=== PATIENT | male | born 1940 | race Caucasian/White ===

== ENCOUNTER 2017-11-04 14:58 | Emergency (ER) | payer MEDICARE ==
[~2017-11-04] VITALS: Ht 177.8 cm; Wt 89.4 kg
--- NOTE | 2017-11-04 15:00 | NUR ---
PT BIB [facility] TO ER BED 11. PER REPORT, PT IS C/O GENERALIZED WEAKNESS AND PER STAFF, REFUSING TO EAT BREAKFAST. HX OF DEMENTIA. AAO TO NAME ONLY AND STATING THAT HE FEELS FINE. ON MONITOR. STABLE VITALS. AWAITING MD COLBY.
--- NOTE | 2017-11-04 15:08 | NUR ---
DR GARCIA AT BEDSIDE FOR EVAL.
[2017-11-04 15:21] LABS: BASOPHILS # (AUTO) 0.1 /CMM (0.0-0.2); BASOPHILS % (AUTO) 1.3 % (0.0-2.0); EOSINOPHILS # (AUTO) 0.6 /CMM (0.0-0.7); EOSINOPHILS % (AUTO) 10.4 % (0.0-6.0); HEMATOCRIT 40 % (39-51); HEMOGLOBIN 13.9 g/dL (13.5-17.5); LYMPHOCYTES # (AUTO) 1.6 /CMM (0.8-4.8); LYMPHOCYTES % (AUTO) 27.3 % (20.0-44.0); MEAN CORPUSCULAR HEMOGLOBIN 31 PG (26.0-33.0); MEAN CORPUSCULAR HGB CONC 35 g/dl (31.0-36.0); MEAN CORPUSCULAR VOLUME 88 fL (80-96); MONOCYTES # (AUTO) 0.5 /CMM (0.1-1.30); MONOCYTES % (AUTO) 9.2 % (2.0-12.0); NEUTROPHILS # (AUTO) 3.1 /CMM (1.8-8.9); NEUTROPHILS % (AUTO) 51.8 % (43.0-81.0); PLATELET COUNT (AUTO) 207 /CMM (150-450); RDW COEFFICIENT OF VARIATION 13.5 (11.5-15.0); RED BLOOD CELL COUNT(AUTO) 4.53 MIL/uL (4.5-6.0); WHITE BLOOD COUNT (AUTO) 5.9 K/uL (4.3-11.0)
--- NOTE | 2017-11-04 15:23 | NUR ---
RADIOLOGY AT BEDSIDE FOR CHEST XRAY.
[2017-11-04 15:30] LABS: CALCIUM, SERUM 8.9 mg/dL (8.5-10.1); CARBON DIOXIDE 33 mmol/L (21-32); CHLORIDE 108 mmol/L (98-107); GLUCOSE 93 mg/dL (74-106); POTASSIUM 4.3 mmol/L (3.5-5.1); SODIUM SERUM 143 mmol/L (136-145); UREA NITROGEN, BLOOD 22 mg/dL (7-18)
[2017-11-04 15:34] LABS: INR 0.99 (0.85-1.15)
[2017-11-04 15:36] LABS: ALANINE AMINOTRANSFERASE 23 U/L (12-78); ALBUMIN 3.1 g/dL (3.4-5.0); ALKALINE PHOSPHATASE 62 U/L (46-116); ASPARTATE AMINOTRANSFERASE 20 U/L (15-37); BILIRUBIN,DIRECT 0.2 mg/dL (0.0-0.2); BILIRUBIN,TOTAL 0.5 mg/dL (0.2-1.0); TOTAL PROTEIN, SERUM 7.2 g/dL (6.4-8.2)
[2017-11-04 15:38] LABS: TROPONIN I < 0.017 ng/mL (0.00-0.056)
[2017-11-04 16:12] LABS: APPEARANCE,URINE Clear (CLEAR); BILIRUBIN,URINE Negative (NEGATIVE); BLOOD, URINE Negative Ery/uL (NEGATIVE); COLOR,URINE Yellow (YELLOW); KETONES,URINE Negative (NEGATIVE); LEUKOCYTE ESTERASE ,URINE Negative (NEGATIVE); NITRITE, URINE Negative (NEGATIVE); PROTEIN,URINE Negative (NEGATIVE); UGLUCOSE Negative (NEGATIVE)
[2017-11-04 16:19] LABS: BACTERIA,URINE None seen /HPF (None Seen); RBC,URINE 0-2 /HPF (0-2); SQUAMOUS EPITHELIAL CELL,UR Few /HPF (None Seen); WBC,URINE 0-3 /HPF (0-3)
[2017-11-04 16:20] LABS: MUCUS,URINE Few /LPF (None Seen)
--- NOTE | 2017-11-04 16:59 | NUR ---
CALLED [facility] FOR BLS TRANSPORT AND SPOKE TO DISPATCHER IDALIA. RECEIVED A 45 MIN ETA. TRIP #[id number]
--- NOTE | 2017-11-04 17:46 | NUR ---
PT TRANSPORTED BACK TO NURSING FACILITY. [facility]HL DISCONTINUED.STABLE CONDITION.
[2017-11-04 17:50] VITALS: BP 152/86
== END 2017-11-04 17:51 | disposition home or self-care (01) ==
LOC: ER 15:05
DX: R53.83 Other fatigue (principal); F03.90 Unspecified dementia, unspecified severity, without behavioral disturbance, psychotic disturbance, mood disturbance, and anxiety; I10 Essential (primary) hypertension; I70.0 Atherosclerosis of aorta; N40.0 Benign prostatic hyperplasia without lower urinary tract symptoms
CPT/HCPCS: 36415; 71045-TC; 80048-TC; 80076-TC; 81000-TC; 84484-TC; 85025-TC; 85730-TC; A4606; Z7610